=== PATIENT | male | born 1955 | race Caucasian/White ===

== ENCOUNTER 2019-09-04 05:47 | Day surgery (SDC) | payer OTHER ==
[~2019-09-04] VITALS: Ht 162.6 cm; Wt 54.0 kg
[~2019-09-04 05:47] MED LIST: LEVO-T100 MCG PO; LIPITOR40 MG PO; NEURONTIN 300M300 M2 PO; VITAMIN D350 MC1 PO
[2019-09-04 06:29] VITALS: BP 149/87
== END 2019-09-04 09:45 | disposition home or self-care (01) ==
LOC: OR 05:47 → TBA 05:47 → OR 09:45
DX: M96.1 Postlaminectomy syndrome, not elsewhere classified (principal); E78.5 Hyperlipidemia, unspecified; E03.9 Hypothyroidism, unspecified; I73.9 Peripheral vascular disease, unspecified; J43.9 Emphysema, unspecified; F17.210 Nicotine dependence, cigarettes, uncomplicated; Z98.890 Other specified postprocedural states; Z79.899 Other long term (current) drug therapy
CPT/HCPCS: 50010; 50101; 50386; 50417; 56524; 56526; 56528; 57196; 57197; 57198; 57199; 57200; 57201; 57430; 62110; 62850; 70005